=== PATIENT | male | born 1995 | race Caucasian/White ===

== ENCOUNTER 2018-01-13 09:33 | Emergency (ER) | payer BC ==
[2018-01-13 09:44] VITALS: BP 147/65; PULSE 68; RESP 16; TEMP 98
--- NOTE | 2018-01-13 10:40 | ED ---
General Adult HPI - General Chief complaint: Allergic Reaction Stated complaint: Allergic reaction Time Seen by Provider: 01/13/18 10:12 Source: patient, RN notes reviewed Mode of arrival: ambulatory Limitations: no limitations - History of Present Illness Initial comments: 22-year-old male presents to the emergency department with a chief complaint of bilateral eye swelling. Patient states that this started today about an hour and a half after he went to work. He states he does suffer from seasonal ALLERGIES as well as asthma. He states that there is concern for possible mold in his workplace and he is concerned that this may be causes swelling. He states he did not have any difficulty in breathing or shortness of breath with this. He states that his eyes are swollen and somewhat itchy. Patient states that there is been no nausea or vomiting with this. Patient denies any other symptoms from this. He denies any new foods or any changes in soaps or detergents at home. He denies a history of this flareup in the past.Patient denies any recent fever, chills, shortness of breath, chest pain, back pain, abdominal pain, nausea vomiting, numbness or tingling, dysuria or hematuria, constipation or diarrhea, headaches or visual changes, or any other current symptoms. - Related Data Previous Rx's Medication Instructions Recorded diphenhydrAMINE [Benadryl] 50 mg PO HS PRN #5 capsule 01/13/18 predniSONE 50 mg PO DAILY #5 tab 01/13/18 Allergies Allergy/AdvReac Type Severity Reaction Status Date / Time No Known Allergies Allergy Verified 01/13/18 09:49 Review of Systems ROS Statement: Those systems with pertinent positive or pertinent negative responses have been documented in the HPI. ROS Other: All systems not noted in ROS Statement are negative. Past Medical History Past Medical History: Asthma History of Any Multi-Drug Resistant Organisms: None Reported Past Surgical History: No Surgical Hx Reported Past Psychological History: No Psychological Hx Reported Smoking Status: Never smoker Past Alcohol Use History: Occasional Past Drug Use History: None Reported General Exam Limitations: no limitations General appearance: alert, in no apparent distress Head exam: Present: atraumatic, normocephalic, normal inspection Eye exam: Present: normal appearance, PERRL, EOMI, periorbital swelling (Under bilateral eyes). Absent: scleral icterus, conjunctival injection, periorbital tenderness ENT exam: Present: normal exam, mucous membranes moist Neck exam: Present: normal inspection. Absent: tenderness, meningismus, lymphadenopathy Respiratory exam: Present: normal lung sounds bilaterally. Absent: respiratory distress, wheezes, rales, rhonchi, stridor Cardiovascular Exam: Present: regular rate, normal rhythm, normal heart sounds. Absent: systolic murmur, diastolic murmur, rubs, gallop, clicks Neurological exam: Present: alert, oriented X3 Psychiatric exam: Present: normal affect, normal mood Skin exam: Present: warm, dry, intact, normal color. Absent: rash Course Vital Signs 01/13/18 09:41 Temperature 98.0 F Pulse Rate 68 Respiratory 16 Rate Blood Pressure 147/65 O2 Sat by Pulse 100 Oximetry Medical Decision Making - Medical Decision Making 22-year-old male presents with what appears to be some swelling to bilateral eyes. We discussed this could be ALLERGY component. We did discuss that the patient will be started on Benadryl and prednisone. We did discuss to look for possible causes for the reaction. He did discuss follow-up we did discuss half-way. We did discuss return parameters all questions. Patient is in agreement this plan all questions have been answered. Patient will be discharged. Disposition Clinical Impression: Allergic reaction Disposition: HOME SELF-CARE Condition: Stable Instructions: Allergies (ED) Additional Instructions: Please use medication as discussed. Please follow up with family doctor if symptoms have not improved over the next two days. Please return to the emergency room if your symptoms increase or worsen or for any other concerns. Prescriptions: diphenhydrAMINE [Benadryl] 50 mg PO HS PRN #5 capsule PRN Reason: Itching predniSONE 50 mg PO DAILY #5 tab Referrals: Artemio Hartman MD [STAFF PHYSICIAN] - 1-2 days Time of Disposition: 10:40
== END 2018-01-13 10:51 | disposition home or self-care (01) ==
LOC: EC 09:33
DX: T78.40XA Allergy, unspecified, initial encounter (principal); J45.909 Unspecified asthma, uncomplicated; Z91.09 Other allergy status, other than to drugs and biological substances
CPT/HCPCS: 99283